=== PATIENT | male | born 1945 | race Caucasian/White ===

== ENCOUNTER 2020-07-11 22:52 | Inpatient (IN) | payer MEDICARE ==
[~2020-07-11 22:52] MED LIST: Iopamidol-370 76% 500 ML 1 ML ONE
[2020-07-11 23:57] LABS: #Lymphocytes 0.4 thou/uL (1.20-3.40); #Neutrophils 5.1 thou/uL (1.40-6.50); %Eosinophils 0.4 % (0.0-10.0); %Lymphocytes 6.7 % (21.0-51.0); %Monocytes 0.6 % (0.0-10.0); %Neutrophils 92.2 % (42.0-75.0); Hemoglobin 14.8 g/dL (14.0-18.0); Mean Corpuscular Hemoglobin 36.1 pg (27.0-31.0); Mean Platelet Volume 6.7 fL (7.4-10.4); Platelet Count 159 thou/uL (130-400); RBC Distribution Width 12.3 % (11.5-14.5); White Blood Cell (WBC) Count 5.5 thou/uL (4.8-10.8)
[2020-07-12 00:12] LABS: Bilirubin Negative (Negative); Blood, Urine Negative (Negative); Clarity Clear (Clear); Glucose, Urine (Dipstick) Normal (Negative); Ketone, Urine Negative (Negative); Leukocyte Negative Leu/uL (Negative); Nitrite Negative (Negative); Protein, Urine (Dipstick) Negative (Neg-Trace); Specific Gravity, Urine 1.021 (1.002-1.036); Urobilinogen 3 mg/dL (Less than 2)
[2020-07-12 00:17] LABS: AST (SGOT) 309 U/L (5-34); Albumin 3.9 g/dL (3.4-4.8); Alkaline Phosphatase 165 U/L (40-110); Anion Gap 16 mmol/L (10-20); BUN (Urea Nitrogen) 15 mg/dL (8.4-25.7); Bilirubin, Total 2.4 mg/dL (0.2-1.2); Calc. Creatinine Clearance 0 mL/min (70-130); Calcium 9.1 mg/dL (7.8-10.44); Carbon Dioxide 23 mmol/L (23-31); Chloride 100 mmol/L (98-107); Globulin 2.4 g/dL (2.4-3.5); Glucose 111 mg/dL (83-110); Potassium 4.1 mmol/L (3.5-5.1); Protein, Total 6.3 g/dL (5.8-8.1); Sodium 135 mmol/L (136-145)
[2020-07-12 00:18] LABS: ALT (SGPT) 226 U/L (8-55)
[2020-07-12 00:31] LABS: Lipase 3516 U/L (8-78)
[2020-07-12] MEDS ORDERED: Piperacillin/Tazobactam 3.375 GM VIAL ONE ×2 (01:12→02:03)
[2020-07-12] MEDS ORDERED: Acetaminophen 325 MG TAB PO PRN ×2 (03:13→04:36)
[2020-07-12] MEDS ORDERED: Ondansetron PF 4 MG/2 ML Vial IVP PRN (03:13)
[2020-07-12] MEDS ORDERED: hydrALAZINE 20 MG/ML VIAL SLOW IVP PRN (03:16)
[2020-07-12 04:44] LABS: SARS-CoV-2 NAA Rapid Test Not Detected (NotDetected)
[2020-07-12] MEDS ORDERED: HYDROcodone/Acetaminophen 10/325 mg Tablet PO SCH (04:45)
[2020-07-12] MEDS: Sodium Chloride 0.9% 1,000 ML IV SCH ×2 (04:52→12:37)
[2020-07-12 06:15] LABS: #Basophils 0.1 thou/uL (0.0-0.2); #Lymphocytes 0.2 thou/uL (1.20-3.40); #Monocytes 0.5 thou/uL (0.11-0.59); #Neutrophils 11.4 thou/uL (1.40-6.50); %Basophils 0.9 % (0.0-1.0); %Eosinophils 0.2 % (0.0-10.0); %Lymphocytes 1.9 % (21.0-51.0); Hemoglobin 14.4 g/dL (14.0-18.0); Mean Corpuscular HGB CONC 35.3 g/dL (32.0-36.0); Mean Corpuscular Hemoglobin 35.9 pg (27.0-31.0); Mean Platelet Volume 7.2 fL (7.4-10.4); Platelet Count 154 thou/uL (130-400); RBC Distribution Width 12.5 % (11.5-14.5); Red Blood Cell (RBC) Count 4.02 mill/uL (4.70-6.10); White Blood Cell (WBC) Count 12.3 thou/uL (4.8-10.8)
[2020-07-12 06:40] LABS: ALT (SGPT) 566 U/L (8-55); AST (SGOT) 611 U/L (5-34); Albumin 3.7 g/dL (3.4-4.8); Alkaline Phosphatase 168 U/L (40-110); Anion Gap 13 mmol/L (10-20); BUN (Urea Nitrogen) 18 mg/dL (8.4-25.7); Calc. Creatinine Clearance 56 mL/min (70-130); Calcium 8.9 mg/dL (7.8-10.44); Carbon Dioxide 25 mmol/L (23-31); Cardiac Risk 3.5 (Less than 4.5); Chloride 100 mmol/L (98-107); Cholesterol 129 mg/dl (< 200 Desired); Globulin 2.2 g/dL (2.4-3.5); Glucose 143 mg/dL (83-110); HDL Cholesterol 37 mg/dL (>60 Neg Risk); LDL Cholesterol, Calculated 72 mg/dL; Potassium 3.8 mmol/L (3.5-5.1); Protein, Total 5.9 g/dL (5.8-8.1); Sodium 134 mmol/L (136-145); Triglycerides 99 mg/dL (Less than 150)
[2020-07-12] MEDS: Piperacillin/Tazobactam 3.375 GM in Sodium Chloride 0.9% 100 ML IVPB SCH ×3 (07:47→21:19)
[2020-07-12] MEDS: Pantoprazole 40 MG VIAL IVP SCH (07:47)
[2020-07-12] MEDS: Lactated Ringer's 1,000 ML IV SCH ×2 (12:35→21:22)
[2020-07-12] MEDS ORDERED: Iothalamate Meglumine 60% 50 ML VIAL FS ONE (15:03)
[2020-07-12] MEDS ORDERED: Fentanyl 100 MCG/2 ML VIAL ONE (15:11)
[2020-07-12] MEDS ORDERED: Indomethacin 50 MG SUPP ONE (15:16)
[2020-07-12 15:33] LABS: CKMB 0.7 ng/mL (0-6.6)
[2020-07-12] MEDS ORDERED: Morphine 4 MG/ML VIAL SLOW IVP PRN (15:37)
[2020-07-12] MEDS ORDERED: HYDROcodone/Acetaminophen 5/325 mg Tablet PO PRN (15:38)
[2020-07-12] MEDS ORDERED: Lidocaine 1% PF 5 ML VIAL ONE (15:40)
[2020-07-12] MEDS ORDERED: PROPOFOL 200 MG/20 ML VIAL ONE (15:40)
[2020-07-12] MEDS ORDERED: Ondansetron PF 4 MG/2 ML Vial ONE (15:40)
[2020-07-12] MEDS ORDERED: PHENYLEPHRINE-NS 100 MCG/ML 10 ML SYRINGE ONE (15:40)
[2020-07-12] MEDS ORDERED: Dexamethasone 20 MG/5 ML VIAL ONE (15:40)
[2020-07-12] MEDS ORDERED: Rocuronium Bromide 10 MG/ML (10ML VIAL) ONE (15:40)
[2020-07-12] MEDS ORDERED: Esmolol 100 MG/10 ML VIAL ONE (15:40)
[2020-07-12] MEDS ORDERED: SUGAMMADEX SODIUM 200 MG/2 ML VIAL ONE (17:00)
[2020-07-12] MEDS: Carvedilol 6.25 MG TAB PO SCH (21:19)
[2020-07-13] MEDS: Piperacillin/Tazobactam 3.375 GM in Sodium Chloride 0.9% 100 ML IVPB SCH ×4 (01:51→20:44)
[2020-07-13] MEDS: Levothyroxine Sodium 25 MCG TAB PO SCH (05:43)
[2020-07-13 05:57] LABS: #Lymphocytes 1.2 thou/uL (1.20-3.40); #Monocytes 0.4 thou/uL (0.11-0.59); #Neutrophils 9.1 thou/uL (1.40-6.50); %Eosinophils 0.1 % (0.0-10.0); %Lymphocytes 11.1 % (21.0-51.0); %Monocytes 3.4 % (0.0-10.0); %Neutrophils 85.4 % (42.0-75.0); Hemoglobin 14.5 g/dL (14.0-18.0); Mean Corpuscular HGB CONC 34.9 g/dL (32.0-36.0); Mean Corpuscular Hemoglobin 35.4 pg (27.0-31.0); Mean Platelet Volume 7.4 fL (7.4-10.4); Platelet Count 127 thou/uL (130-400); RBC Distribution Width 12.4 % (11.5-14.5); Red Blood Cell (RBC) Count 4.09 mill/uL (4.70-6.10); White Blood Cell (WBC) Count 10.6 thou/uL (4.8-10.8)
[2020-07-13 06:20] LABS: ALT (SGPT) 451 U/L (8-55); AST (SGOT) 246 U/L (5-34); Albumin 3.6 g/dL (3.4-4.8); Alkaline Phosphatase 134 U/L (40-110); Anion Gap 13 mmol/L (10-20); BUN (Urea Nitrogen) 17 mg/dL (8.4-25.7); Bilirubin, Total 1.8 mg/dL (0.2-1.2); Calc. Creatinine Clearance 76 mL/min (70-130); Calcium 8.8 mg/dL (7.8-10.44); Carbon Dioxide 21 mmol/L (23-31); Cardiac Risk 3.1 (Less than 4.5); Chloride 108 mmol/L (98-107); Cholesterol 121 mg/dl (< 200 Desired); Globulin 2.6 g/dL (2.4-3.5); Glucose 158 mg/dL (83-110); HDL Cholesterol 39 mg/dL (>60 Neg Risk); LDL Cholesterol, Calculated 64 mg/dL; Lipase 458 U/L (8-78); Potassium 4.2 mmol/L (3.5-5.1); Protein, Total 6.2 g/dL (5.8-8.1); Sodium 138 mmol/L (136-145); Triglycerides 88 mg/dL (Less than 150)
[2020-07-13] MEDS: Pantoprazole 40 MG VIAL IVP SCH (08:30)
[2020-07-13] MEDS ORDERED: Spironolactone 25 MG TAB PO SCH (09:00)
[2020-07-13] MEDS: Carvedilol 6.25 MG TAB PO SCH ×2 (10:03→20:44)
[2020-07-13] MEDS: Aspirin 325 MG TAB PO SCH (10:03)
[2020-07-13] MEDS: Pantoprazole 40 MG GRANULES PACKET PO SCH (10:03)
[2020-07-13] MEDS: Lisinopril 5 MG TAB PO SCH (10:03)
[2020-07-13] MEDS: Lactated Ringer's 1,000 ML IV SCH ×2 (13:29→20:45)
[2020-07-14] MEDS: Piperacillin/Tazobactam 3.375 GM in Sodium Chloride 0.9% 100 ML IVPB SCH ×4 (01:53→20:18)
[2020-07-14] MEDS: Levothyroxine Sodium 25 MCG TAB PO SCH (05:28)
[2020-07-14 05:56] LABS: #Lymphocytes 1.1 thou/uL (1.20-3.40); #Monocytes 0.4 thou/uL (0.11-0.59); #Neutrophils 6.7 thou/uL (1.40-6.50); %Eosinophils 0.2 % (0.0-10.0); %Monocytes 5.4 % (0.0-10.0); %Neutrophils 81.4 % (42.0-75.0); Hemoglobin 12.5 g/dL (14.0-18.0); Mean Corpuscular HGB CONC 34.3 g/dL (32.0-36.0); Mean Corpuscular Hemoglobin 35.7 pg (27.0-31.0); Mean Platelet Volume 7.9 fL (7.4-10.4); Platelet Count 121 thou/uL (130-400); RBC Distribution Width 12.5 % (11.5-14.5); Red Blood Cell (RBC) Count 3.51 mill/uL (4.70-6.10); White Blood Cell (WBC) Count 8.2 thou/uL (4.8-10.8)
[2020-07-14 06:15] LABS: ALT (SGPT) 251 U/L (8-55); AST (SGOT) 85 U/L (5-34); Albumin 3.1 g/dL (3.4-4.8); Alkaline Phosphatase 101 U/L (40-110); Anion Gap 10 mmol/L (10-20); BUN (Urea Nitrogen) 17 mg/dL (8.4-25.7); Bilirubin, Total 0.7 mg/dL (0.2-1.2); Calc. Creatinine Clearance 83 mL/min (70-130); Calcium 8.8 mg/dL (7.8-10.44); Carbon Dioxide 27 mmol/L (23-31); Chloride 108 mmol/L (98-107); Globulin 2.5 g/dL (2.4-3.5); Glucose 121 mg/dL (83-110); Potassium 4.7 mmol/L (3.5-5.1); Protein, Total 5.6 g/dL (5.8-8.1); Sodium 140 mmol/L (136-145)
[2020-07-14] MEDS ORDERED: Communication Order-Pharmacy FS SCH (08:30)
[2020-07-14] MEDS: Lisinopril 5 MG TAB PO SCH (09:39)
[2020-07-14] MEDS: Carvedilol 6.25 MG TAB PO SCH ×2 (09:39→20:20)
[2020-07-14] MEDS: Aspirin 325 MG TAB PO SCH (09:39)
[2020-07-14] MEDS: Pantoprazole 40 MG GRANULES PACKET PO SCH (10:46)
[2020-07-14] MEDS: Lactated Ringer's 1,000 ML IV SCH ×2 (13:12→15:48)
[2020-07-15] MEDS: Piperacillin/Tazobactam 3.375 GM in Sodium Chloride 0.9% 100 ML IVPB SCH ×4 (02:05→20:04)
[2020-07-15] MEDS: Lactated Ringer's 1,000 ML IV SCH ×2 (03:23→20:03)
[2020-07-15] MEDS: Levothyroxine Sodium 25 MCG TAB PO SCH (05:04)
[2020-07-15 06:17] LABS: #Basophils 0.1 thou/uL (0.0-0.2); #Lymphocytes 0.8 thou/uL (1.20-3.40); #Monocytes 0.5 thou/uL (0.11-0.59); %Basophils 1.2 % (0.0-1.0); %Eosinophils 0.8 % (0.0-10.0); %Lymphocytes 15.3 % (21.0-51.0); %Monocytes 8.5 % (0.0-10.0); %Neutrophils 74.3 % (42.0-75.0); Hemoglobin 12.1 g/dL (14.0-18.0); Mean Corpuscular HGB CONC 34.2 g/dL (32.0-36.0); Mean Corpuscular Hemoglobin 35.1 pg (27.0-31.0); Mean Platelet Volume 7.4 fL (7.4-10.4); Platelet Count 129 thou/uL (130-400); RBC Distribution Width 12.6 % (11.5-14.5); Red Blood Cell (RBC) Count 3.43 mill/uL (4.70-6.10); White Blood Cell (WBC) Count 5.4 thou/uL (4.8-10.8)
[2020-07-15 06:22] LABS: PTT 31.1 sec (22.9-36.1); Prothrombin Time 13.6 sec (12.0-14.7)
[2020-07-15 06:40] LABS: ALT (SGPT) 170 U/L (8-55); AST (SGOT) 39 U/L (5-34); Albumin 3.1 g/dL (3.4-4.8); Alkaline Phosphatase 92 U/L (40-110); Anion Gap 10 mmol/L (10-20); BUN (Urea Nitrogen) 11 mg/dL (8.4-25.7); Bilirubin, Total 0.7 mg/dL (0.2-1.2); Calc. Creatinine Clearance 83 mL/min (70-130); Calcium 8.6 mg/dL (7.8-10.44); Carbon Dioxide 25 mmol/L (23-31); Chloride 107 mmol/L (98-107); Globulin 2.4 g/dL (2.4-3.5); Glucose 85 mg/dL (83-110); Lipase 82 U/L (8-78); Potassium 3.8 mmol/L (3.5-5.1); Protein, Total 5.5 g/dL (5.8-8.1); Sodium 138 mmol/L (136-145)
[2020-07-15] MEDS: Aspirin 325 MG TAB PO SCH (08:07)
[2020-07-15] MEDS: Carvedilol 6.25 MG TAB PO SCH ×2 (08:08→20:05)
[2020-07-15] MEDS: Lisinopril 5 MG TAB PO SCH (08:08)
[2020-07-15] MEDS ORDERED: Piperacillin/Tazobactam 3.375 GM VIAL ONE (08:45)
[2020-07-16] MEDS: Piperacillin/Tazobactam 3.375 GM in Sodium Chloride 0.9% 100 ML IVPB SCH ×4 (02:13→20:44)
[2020-07-16] MEDS: Levothyroxine Sodium 25 MCG TAB PO SCH (05:51)
[2020-07-16] MEDS: Carvedilol 6.25 MG TAB PO SCH ×2 (08:03→20:44)
[2020-07-16] MEDS: Lisinopril 5 MG TAB PO SCH (08:04)
[2020-07-16] MEDS: Aspirin 325 MG TAB PO SCH (08:06)
[2020-07-16] MEDS: Lactated Ringer's 1,000 ML IV SCH ×2 (11:11→21:55)
[2020-07-17] MEDS: Piperacillin/Tazobactam 3.375 GM in Sodium Chloride 0.9% 100 ML IVPB SCH ×4 (02:20→20:38)
[2020-07-17] MEDS ORDERED: Sodium Chloride 0.9% 1,000 ML IV SCH ×2 (06:00→08:05)
[2020-07-17 06:18] LABS: #Eosinphils 0.1 thou/uL (0.0-0.7); #Lymphocytes 1.9 thou/uL (1.20-3.40); #Monocytes 0.6 thou/uL (0.11-0.59); #Neutrophils 4.9 thou/uL (1.40-6.50); %Basophils 0.2 % (0.0-1.0); %Eosinophils 1.8 % (0.0-10.0); %Lymphocytes 25.1 % (21.0-51.0); %Monocytes 8.1 % (0.0-10.0); %Neutrophils 64.8 % (42.0-75.0); Hemoglobin 12.1 g/dL (14.0-18.0); Mean Corpuscular HGB CONC 33.5 g/dL (32.0-36.0); Mean Corpuscular Hemoglobin 34.4 pg (27.0-31.0); Mean Platelet Volume 7.2 fL (7.4-10.4); Platelet Count 149 thou/uL (130-400); RBC Distribution Width 12.4 % (11.5-14.5); Red Blood Cell (RBC) Count 3.53 mill/uL (4.70-6.10); White Blood Cell (WBC) Count 7.5 thou/uL (4.8-10.8)
[2020-07-17] MEDS: Carvedilol 6.25 MG TAB PO SCH ×2 (06:27→20:42)
[2020-07-17] MEDS: Levothyroxine Sodium 25 MCG TAB PO SCH (06:28)
[2020-07-17] MEDS ORDERED: Heparin 10,000 UNITS/ 10 ML VIAL ONE (06:45)
[2020-07-17] MEDS ORDERED: Lidocaine 1% (PF) 30 ML VIAL ONE (06:45)
[2020-07-17 06:51] LABS: ALT (SGPT) 95 U/L (8-55); AST (SGOT) 25 U/L (5-34); Albumin 3.1 g/dL (3.4-4.8); Alkaline Phosphatase 74 U/L (40-110); Anion Gap 10 mmol/L (10-20); BUN (Urea Nitrogen) 11 mg/dL (8.4-25.7); Bilirubin, Total 0.7 mg/dL (0.2-1.2); Calc. Creatinine Clearance 76 mL/min (70-130); Calcium 8.7 mg/dL (7.8-10.44); Carbon Dioxide 26 mmol/L (23-31); Chloride 108 mmol/L (98-107); Globulin 2.4 g/dL (2.4-3.5); Glucose 94 mg/dL (83-110); Potassium 4.1 mmol/L (3.5-5.1); Protein, Total 5.5 g/dL (5.8-8.1); Sodium 140 mmol/L (136-145)
[2020-07-17] MEDS ORDERED: Fentanyl 100 MCG/2 ML VIAL ONE (07:18)
[2020-07-17] MEDS ORDERED: Midazolam HCl 2 mg/2 ml Vial ONE (07:18)
[2020-07-17] MEDS ORDERED: Protamine Sulfate 50 MG/5 ML VIAL ONE (07:44)
[2020-07-17] MEDS ORDERED: Sodium Chloride 0.9% 200 ML IV PRN (08:04)
[2020-07-17] MEDS ORDERED: Nitroglycerin 0.4 MG TAB (25 Tab Bottle) SL PRN (08:04)
[2020-07-17] MEDS ORDERED: Acetaminophen/Codeine 30-300mg Tablet PO PRN ×2 (08:04)
[2020-07-17] MEDS ORDERED: Furosemide 20 MG TAB PO SCH (08:15)
[2020-07-17] MEDS ORDERED: Furosemide 40 MG TAB PO SCH (08:15)
[2020-07-17] MEDS ORDERED: Iopamidol 370 76% 100 ML VIAL ONE (08:42)
[2020-07-17] MEDS ORDERED: Iopamidol 370 76% 50 ML VIAL FS ONE (08:42)
[2020-07-17] MEDS: Lisinopril 5 MG TAB PO SCH (13:43)
[2020-07-17] MEDS: Aspirin 325 MG TAB PO SCH (13:43)
[2020-07-17] MEDS: Lactated Ringer's 1,000 ML IV SCH (13:44)
[2020-07-18] MEDS: Piperacillin/Tazobactam 3.375 GM in Sodium Chloride 0.9% 100 ML IVPB SCH ×4 (04:47→20:46)
[2020-07-18 04:51] LABS: ALT (SGPT) 81 U/L (8-55); AST (SGOT) 23 U/L (5-34); Albumin 3.3 g/dL (3.4-4.8); Alkaline Phosphatase 80 U/L (40-110); Anion Gap 10 mmol/L (10-20); BUN (Urea Nitrogen) 12 mg/dL (8.4-25.7); Bilirubin, Total 0.5 mg/dL (0.2-1.2); Calc. Creatinine Clearance 89 mL/min (70-130); Calcium 8.8 mg/dL (7.8-10.44); Carbon Dioxide 26 mmol/L (23-31); Chloride 106 mmol/L (98-107); Globulin 2.7 g/dL (2.4-3.5); Glucose 132 mg/dL (83-110); Lipase 71 U/L (8-78); Potassium 3.8 mmol/L (3.5-5.1); Sodium 138 mmol/L (136-145)
[2020-07-18] MEDS: Levothyroxine Sodium 25 MCG TAB PO SCH (05:20)
[2020-07-18] MEDS: Furosemide 40 MG TAB PO SCH (09:18)
[2020-07-18] MEDS: Aspirin 325 MG TAB PO SCH (09:18)
[2020-07-18] MEDS: Carvedilol 6.25 MG TAB PO SCH ×2 (09:18→20:47)
[2020-07-18] MEDS: Lisinopril 5 MG TAB PO SCH (09:18)
[2020-07-18] MEDS ORDERED: Communication Order-Pharmacy FS ONE (18:13)
[2020-07-18] MEDS: Docusate 100 MG CAP PO SCH (20:48)
[2020-07-19] MEDS: Piperacillin/Tazobactam 3.375 GM in Sodium Chloride 0.9% 100 ML IVPB SCH ×4 (01:53→20:21)
[2020-07-19] MEDS: Levothyroxine Sodium 25 MCG TAB PO SCH (05:45)
[2020-07-19] MEDS: Lisinopril 5 MG TAB PO SCH (09:40)
[2020-07-19] MEDS: Docusate 100 MG CAP PO SCH ×2 (09:40→20:21)
[2020-07-19] MEDS: Aspirin 325 MG TAB PO SCH (09:40)
[2020-07-19] MEDS: Furosemide 40 MG TAB PO SCH (09:40)
[2020-07-19] MEDS: Carvedilol 6.25 MG TAB PO SCH ×2 (09:40→20:21)
[2020-07-19] MEDS ORDERED: Piperacillin/Tazobactam 3.375 GM VIAL ONE (14:34)
[2020-07-20] MEDS: Piperacillin/Tazobactam 3.375 GM in Sodium Chloride 0.9% 100 ML IVPB SCH ×2 (02:58→13:23)
[2020-07-20] MEDS: Carvedilol 6.25 MG TAB PO SCH (05:19)
[2020-07-20] MEDS: Furosemide 40 MG TAB PO SCH (05:22)
[2020-07-20] MEDS: Levothyroxine Sodium 25 MCG TAB PO SCH (05:22)
[2020-07-20] MEDS: Lisinopril 5 MG TAB PO SCH (05:22)
[2020-07-20] MEDS ORDERED: CABG-Vancomycin 1 GM in Premix Bag 1 BAG IVPB SCH (06:30)
[2020-07-20] MEDS ORDERED: Albumin 5% 500 ML ONE (06:37)
[2020-07-20] MEDS ORDERED: Vancomycin 1 GM/200 ML BAG ONE (06:39)
[2020-07-20] MEDS ORDERED: Midazolam HCl 5 mg/5 ml Vial ONE (06:50)
[2020-07-20] MEDS ORDERED: Fentanyl 250 MCG/5 ML VIAL ONE (06:50)
[2020-07-20] MEDS ORDERED: Dexmedetomidine 200 MCG/2 ML VIAL ONE (06:51)
[2020-07-20] MEDS ORDERED: Midazolam HCl 2 mg/2 ml Vial ONE (07:13)
[2020-07-20] MEDS ORDERED: Calcium Chloride 1 GM/10 ML Abboject SYRINGE ONE (08:00)
[2020-07-20] MEDS ORDERED: Sodium Bicarb 50 MEQ/50 ML Abboject 8.4% SYRINGE ONE (08:00)
[2020-07-20] MEDS ORDERED: Cardioplegic Soln 1,000 ML BAG ONE (08:00)
[2020-07-20] MEDS ORDERED: Lidocaine 2% PF 100 mg/5 ml Syringe ONE (08:00)
[2020-07-20] MEDS ORDERED: Glycopyrrolate 0.2 MG/ML 5 ML SYRINGE ONE (08:00)
[2020-07-20] MEDS ORDERED: Norepinephrine 4 MG/4 ML VIAL ONE (08:00)
[2020-07-20] MEDS ORDERED: PROPOFOL 200 MG/20 ML VIAL ONE (08:00)
[2020-07-20] MEDS ORDERED: Heparin 30,000 units/30 ml VIAL ONE (08:00)
[2020-07-20] MEDS ORDERED: Mannitol 12.5 GM/50 ML ONE (08:00)
[2020-07-20] MEDS ORDERED: Lidocaine 1% PF 5 ML VIAL ONE (08:00)
[2020-07-20] MEDS ORDERED: Magnesium Sulfate 1 GM/2 ML VIAL ONE (08:00)
[2020-07-20] MEDS ORDERED: Protamine Sulfate 250 MG/25 ML VIAL ONE (08:00)
[2020-07-20] MEDS ORDERED: Thrombin 5000 UNITS/5 ML VIAL ONE (08:00)
[2020-07-20] MEDS ORDERED: Papaverine 60 MG/2 ML VIAL ONE (08:00)
[2020-07-20] MEDS ORDERED: Potassium Chloride 60 MEQ/30 ML VIAL ONE (08:00)
[2020-07-20] MEDS ORDERED: Heparin 5,000 UNITS/ML VIAL ONE (08:00)
[2020-07-20] MEDS ORDERED: Nitroglycerin 50 MG/250 ML BOT ONE (08:00)
[2020-07-20] MEDS ORDERED: Vecuronium 10 MG VIAL ONE (08:00)
[2020-07-20] MEDS ORDERED: Aminocaproic Acid 5 GM/20 ML VIAL ONE (08:00)
[2020-07-20] MEDS ORDERED: Potassium Chloride 20 MEQ/100 ML PREMIX BAG IVPB PRN (08:57)
[2020-07-20] MEDS ORDERED: Bisacodyl 10 MG SUPP PR PRN (08:57)
[2020-07-20] MEDS ORDERED: niCARdipine 25 MG in Sodium Chloride 0.9% 250 ML 250 ML IVPB PRN (08:57)
[2020-07-20] MEDS ORDERED: Bisacodyl 5 MG TAB PO PRN (08:57)
[2020-07-20] MEDS ORDERED: Acetaminophen 325 MG TAB PO PRN (08:57)
[2020-07-20] MEDS ORDERED: Fentanyl 100 MCG/2 ML VIAL SLOW IVP PRN ×2 (08:57)
[2020-07-20] MEDS ORDERED: Guaifenesin DM 100-10/5 ML UDCUP PO PRN (08:57)
[2020-07-20] MEDS ORDERED: Nitroglycerin 50 MG/250 ML BOT 250 ML IVPB PRN (08:57)
[2020-07-20] MEDS ORDERED: Norepinephrine 8 MG/0.9% NS 250 ML IVPB PRN (08:57)
[2020-07-20] MEDS ORDERED: hydrALAZINE 20 MG/ML VIAL SLOW IVP PRN (08:57)
[2020-07-20] MEDS ORDERED: Mag-Al 1200 mg/1200 mg/30 ML UDCUP PO PRN (08:57)
[2020-07-20] MEDS ORDERED: Morphine 2 MG/ML VIAL SLOW IVP PRN (08:57)
[2020-07-20] MEDS ORDERED: Post-Op Insulin Drip Protocol IVPB ONE (08:57)
[2020-07-20] MEDS ORDERED: Hetastarch 6% 500 ML 500 ML IVPB PRN (08:57)
[2020-07-20] MEDS ORDERED: Ondansetron PF 4 MG/2 ML Vial IVP PRN (08:57)
[2020-07-20] MEDS ORDERED: HYDROcodone/Acetaminophen 5/325 mg Tablet PO PRN (08:57)
[2020-07-20] MEDS ORDERED: Promethazine HCl 25 MG/ML VIAL IM PRN (08:57)
[2020-07-20] MEDS ORDERED: Aspirin 325 MG TAB PO SCH (09:00)
[2020-07-20] MEDS ORDERED: HUMULIN R 100 UNITS in Sodium Chloride 0.9% 100 ML IVPB SCH (10:00)
[2020-07-20] MEDS ORDERED: Dextrose 5% in Water 1,000 ML IV PRN (10:00)
[2020-07-20] MEDS ORDERED: Lantus 1000 UNITS/10 ML VIAL SC PRN (10:00)
[2020-07-20] MEDS ORDERED: Dextrose 50% Abboject 50 ML SYRINGE SLOW IVP PRN (10:00)
[2020-07-20] MEDS ORDERED: PHENYLEPHRINE-NS 100 MCG/ML 10 ML SYRINGE ONE (10:15)
[2020-07-20 13:01] LABS: Actual Bicarbonate (HCO3a) 22.2 mEq/L (22-28); Base Excess (BEa) -1.8 mEq/L (-2.0 to +3.0); CO2 Tension 35.3 mmHg (35.0-45.0); Calcium, Ionized (arterial) 1.08 mmol/L (1.12-1.30); Carboxyhemoglobin (COHb) 0.3 gm% (0.0-3.0); Hemoglobin (Hb) 12.4 g/dL (14.0-18.0); O2 Tension (PaO2), arterial 206.5 mmHg (> 70.0); Potassium - ABG Lab 4.71 mmol/L (3.70-5.30); pH, Arterial 7.42 (7.35-7.45)
[2020-07-20 13:03] LABS: Puncture Site Arterial Line
[2020-07-20 13:04] LABS: #Eosinphils 0.1 thou/uL (0.0-0.7); #Lymphocytes 1.6 thou/uL (1.20-3.40); #Monocytes 0.8 thou/uL (0.11-0.59); #Neutrophils 13.8 thou/uL (1.40-6.50); %Basophils 0.2 % (0.0-1.0); %Eosinophils 0.6 % (0.0-10.0); %Lymphocytes 9.5 % (21.0-51.0); %Monocytes 5.1 % (0.0-10.0); %Neutrophils 84.6 % (42.0-75.0); Hemoglobin 12.2 g/dL (14.0-18.0); Mean Corpuscular HGB CONC 34.1 g/dL (32.0-36.0); Mean Corpuscular Hemoglobin 34.4 pg (27.0-31.0); Mean Platelet Volume 7.1 fL (7.4-10.4); Platelet Count 158 thou/uL (130-400); RBC Distribution Width 12.3 % (11.5-14.5); Red Blood Cell (RBC) Count 3.55 mill/uL (4.70-6.10); White Blood Cell (WBC) Count 16.3 thou/uL (4.8-10.8)
[2020-07-20 13:04] LABS: ALV-art Gradient 177.175 mmHg (0-20)
[2020-07-20] MEDS: Insulin Regular 300 UNITS/3 ML VIAL SC PRN ×2 (13:12→16:07)
[2020-07-20 13:14] LABS: INR-International Normal Ratio 1.2; PTT 28.8 sec (22.9-36.1); Prothrombin Time 15.3 sec (12.0-14.7)
[2020-07-20 13:22] LABS: Anion Gap 10 mmol/L (10-20); BUN (Urea Nitrogen) 11 mg/dL (8.4-25.7); Calc. Creatinine Clearance 107 mL/min (70-130); Calcium 7.8 mg/dL (7.8-10.44); Carbon Dioxide 22 mmol/L (23-31); Chloride 111 mmol/L (98-107); Glucose 157 mg/dL (83-110); Potassium 4.9 mmol/L (3.5-5.1); Sodium 138 mmol/L (136-145)
[2020-07-20] MEDS: Famotidine/PF 20 mg/2ml Vial SLOW IVP SCH ×2 (13:24→20:24)
[2020-07-20] MEDS: Ketorolac Tromethamine 30 MG/ML VIAL IVP SCH ×2 (13:33→17:34)
[2020-07-20] MEDS: Sodium Chloride 0.9% 1,000 ML IV SCH (13:41)
[2020-07-20 13:44] LABS: Potassium 4.9 mmol/L (3.5-5.1)
[2020-07-20] MEDS: HYDROcodone/Acetaminophen 5/325 mg Tablet PO PRN (20:24)
[2020-07-21] MEDS: Ketorolac Tromethamine 30 MG/ML VIAL IVP SCH ×2 (00:12→06:32)
[2020-07-21] MEDS: Insulin Regular 300 UNITS/3 ML VIAL SC PRN (00:16)
[2020-07-21] MEDS: HYDROcodone/Acetaminophen 5/325 mg Tablet PO PRN ×3 (00:22→21:40)
[2020-07-21] MEDS: Sodium Chloride 0.9% 1,000 ML IV SCH (02:30)
[2020-07-21 04:49] LABS: Anion Gap 10 mmol/L (10-20); BUN (Urea Nitrogen) 15 mg/dL (8.4-25.7); Calc. Creatinine Clearance 105 mL/min (70-130); Calcium 7.8 mg/dL (7.8-10.44); Carbon Dioxide 23 mmol/L (23-31); Chloride 111 mmol/L (98-107); Glucose 114 mg/dL (83-110); Potassium 4.3 mmol/L (3.5-5.1); Sodium 140 mmol/L (136-145)
[2020-07-21 04:53] LABS: #Lymphocytes 0.8 thou/uL (1.20-3.40); #Monocytes 0.5 thou/uL (0.11-0.59); #Neutrophils 6.7 thou/uL (1.40-6.50); %Lymphocytes 10.2 % (21.0-51.0); %Monocytes 5.9 % (0.0-10.0); %Neutrophils 83.8 % (42.0-75.0); Hemoglobin 9.2 g/dL (14.0-18.0); Mean Corpuscular HGB CONC 33.4 g/dL (32.0-36.0); Mean Corpuscular Hemoglobin 34.1 pg (27.0-31.0); Mean Platelet Volume 7.6 fL (7.4-10.4); Platelet Count 113 thou/uL (130-400); RBC Distribution Width 12.4 % (11.5-14.5); Red Blood Cell (RBC) Count 2.71 mill/uL (4.70-6.10)
[2020-07-21] MEDS ORDERED: Guaifenesin DM 100-10/5 ML UDCUP PO PRN (08:26)
[2020-07-21] MEDS ORDERED: Mineral Oil ENEMA PR PRN (08:26)
[2020-07-21] MEDS ORDERED: Bisacodyl 10 MG SUPP PR PRN (08:26)
[2020-07-21] MEDS ORDERED: Zolpidem Tartrate 5 MG TAB PO PRN (08:26)
[2020-07-21] MEDS ORDERED: Furosemide 40 MG/4 ML VIAL SLOW IVP SCH ×3 (08:26→14:00)
[2020-07-21] MEDS ORDERED: Mag-Al 1200 mg/1200 mg/30 ML UDCUP PO PRN (08:26)
[2020-07-21] MEDS ORDERED: Bisacodyl 5 MG TAB PO PRN (08:26)
[2020-07-21] MEDS ORDERED: Nitroglycerin 0.4 MG TAB (25 Tab Bottle) SL PRN (08:26)
[2020-07-21] MEDS ORDERED: diphenhydrAMINE 25 MG CAP PO PRN (08:26)
[2020-07-21] MEDS ORDERED: Famotidine 20 MG TAB PO SCH ×2 (09:00)
[2020-07-21] MEDS: Carvedilol 6.25 MG TAB PO SCH ×2 (09:09→21:46)
[2020-07-21] MEDS: Aspirin 325 mg Enteric Coated Tablet PO SCH (09:09)
[2020-07-21 10:52] LABS: Actual Bicarbonate (HCO3a) 22.3 mEq/L (22-28); Analyzer IN Cardio OR; Base Excess (BEa) -0.9 mEq/L (-2.0 to +3.0); CO2 Tension 32.4 mmHg (35.0-45.0); Calcium, Ionized (arterial) 1.11 mmol/L (1.12-1.30); Hemoglobin (Hb) 13.2 g/dL (14.0-18.0); O2 Tension (PaO2), arterial 336.3 mmHg (> 70.0); Potassium - ABG Lab 4.13 mmol/L (3.70-5.30); pH, Arterial 7.46 (7.35-7.45)
[2020-07-21 10:53] LABS: Actual Bicarbonate (HCO3a) 19.1 mEq/L (22-28); Analyzer IN Cardio OR; Calcium, Ionized (arterial) 0.96 mmol/L (1.12-1.30); Hemoglobin (Hb) 9.8 g/dL (14.0-18.0); O2 Tension (PaO2), arterial 391.3 mmHg (> 70.0); Potassium - ABG Lab 5.71 mmol/L (3.70-5.30)
[2020-07-21 10:53] LABS: Actual Bicarbonate (HCO3a) 21.1 mEq/L (22-28); Analyzer IN Cardio OR; CO2 Tension 34.7 mmHg (35.0-45.0); Calcium, Ionized (arterial) 1.07 mmol/L (1.12-1.30); Carboxyhemoglobin (COHb) 0.1 gm% (0.0-3.0); Hemoglobin (Hb) 12.3 g/dL (14.0-18.0); O2 Tension (PaO2), arterial 422.4 mmHg (> 70.0); Potassium - ABG Lab 4.23 mmol/L (3.70-5.30)
[2020-07-21 10:53] LABS: Actual Bicarbonate (HCO3v) 25 mEq/L (22-28); Analyzer IN Cardio OR; Base Excess 0.3 mEq/L (-2.0 to +3.0); Calcium, Ionized (venous) 0.99 mmol/L (1.16-1.32); Chloride (VBG) 107 mmol/L (98-106); Hemoglobin (Hb) 9.4 g/dL (12.6-17.4); pH (venous) 7.39 (7.32-7.43)
[2020-07-21 10:54] LABS: Analyzer IN Cardio OR; Base Excess (BEa) -3.5 mEq/L (-2.0 to +3.0); CO2 Tension 35.5 mmHg (35.0-45.0); Calcium, Ionized (arterial) 1.03 mmol/L (1.12-1.30); Carboxyhemoglobin (COHb) 0.3 gm% (0.0-3.0); Hemoglobin (Hb) 9.8 g/dL (14.0-18.0); O2 Tension (PaO2), arterial 422.8 mmHg (> 70.0); Potassium - ABG Lab 5.66 mmol/L (3.70-5.30); pH, Arterial 7.39 (7.35-7.45)
[2020-07-21 10:55] LABS: Actual Bicarbonate (HCO3a) 24.4 mEq/L (22-28); Analyzer IN Cardio OR; Base Excess (BEa) -0.7 mEq/L (-2.0 to +3.0); CO2 Tension 42.1 mmHg (35.0-45.0); Carboxyhemoglobin (COHb) 0.5 gm% (0.0-3.0); Hemoglobin (Hb) 8.8 g/dL (14.0-18.0); O2 Tension (PaO2), arterial 253.3 mmHg (> 70.0); Potassium - ABG Lab 4.84 mmol/L (3.70-5.30); pH, Arterial 7.38 (7.35-7.45)
[2020-07-21 10:55] LABS: Analyzer IN Cardio OR; Base Excess (BEa) -1.7 mEq/L (-2.0 to +3.0); CO2 Tension 39.2 mmHg (35.0-45.0); Calcium, Ionized (arterial) 1.04 mmol/L (1.12-1.30); Carboxyhemoglobin (COHb) 0.3 gm% (0.0-3.0); Hemoglobin (Hb) 11.8 g/dL (14.0-18.0); O2 Tension (PaO2), arterial 407.5 mmHg (> 70.0); Potassium - ABG Lab 4.29 mmol/L (3.70-5.30); pH, Arterial 7.39 (7.35-7.45)
[2020-07-21 11:02] LABS: Puncture Site Arterial Line
[2020-07-21 11:03] LABS: Puncture Site Arterial Line
[2020-07-21 11:04] LABS: Puncture Site Arterial Line; pH, Arterial 7.56 (7.35-7.45)
[2020-07-21 11:05] LABS: Puncture Site Arterial Line
[2020-07-21 11:05] LABS: Puncture Site Arterial Line
[2020-07-21 11:13] LABS: Puncture Site Arterial Line
[2020-07-21] MEDS ORDERED: Ondansetron PF 4 MG/2 ML Vial IVP PRN (12:28)
[2020-07-22 04:31] LABS: #Lymphocytes 1.3 thou/uL (1.20-3.40); #Monocytes 0.9 thou/uL (0.11-0.59); %Basophils 0.2 % (0.0-1.0); %Eosinophils 0.4 % (0.0-10.0); %Lymphocytes 14.4 % (21.0-51.0); %Monocytes 9.5 % (0.0-10.0); %Neutrophils 75.4 % (42.0-75.0); Hemoglobin 9.8 g/dL (14.0-18.0); Mean Corpuscular HGB CONC 34.5 g/dL (32.0-36.0); Mean Corpuscular Hemoglobin 35.3 pg (27.0-31.0); Mean Platelet Volume 7.5 fL (7.4-10.4); Platelet Count 135 thou/uL (130-400); RBC Distribution Width 12.5 % (11.5-14.5); Red Blood Cell (RBC) Count 2.77 mill/uL (4.70-6.10); White Blood Cell (WBC) Count 9.3 thou/uL (4.8-10.8)
[2020-07-22 04:47] LABS: Anion Gap 13 mmol/L (10-20); BUN (Urea Nitrogen) 16 mg/dL (8.4-25.7); Calc. Creatinine Clearance 107 mL/min (70-130); Carbon Dioxide 21 mmol/L (23-31); Chloride 107 mmol/L (98-107); Glucose 106 mg/dL (83-110); Potassium 3.9 mmol/L (3.5-5.1); Sodium 137 mmol/L (136-145)
[2020-07-22 04:48] LABS: Calcium 8.1 mg/dL (7.8-10.44)
[2020-07-22 05:10] VITALS: BMI 31.4
[2020-07-22] MEDS: Aspirin 325 mg Enteric Coated Tablet PO SCH (08:37)
[2020-07-22] MEDS: HYDROcodone/Acetaminophen 5/325 mg Tablet PO PRN ×3 (08:38→21:12)
[2020-07-22] MEDS: Carvedilol 6.25 MG TAB PO SCH ×2 (09:41→21:12)
[2020-07-22] MEDS ORDERED: Furosemide 20 MG/2 ML VIAL SLOW IVP SCH (12:00)
[2020-07-22] MEDS ORDERED: Polyethylene Glycol 3350 17 GM Packet PO PRN (15:01)
[2020-07-22] MEDS: Senokot S 8.6-50 MG TAB PO SCH (21:12)
[2020-07-22] MEDS: Atorvastatin Calcium 20 MG TAB PO SCH (21:13)
[2020-07-23 05:07] LABS: #Eosinphils 0.1 thou/uL (0.0-0.7); #Lymphocytes 1.6 thou/uL (1.20-3.40); #Monocytes 0.8 thou/uL (0.11-0.59); #Neutrophils 6.2 thou/uL (1.40-6.50); %Basophils 0.3 % (0.0-1.0); %Eosinophils 0.7 % (0.0-10.0); %Lymphocytes 18.3 % (21.0-51.0); %Monocytes 9.2 % (0.0-10.0); %Neutrophils 71.5 % (42.0-75.0); Hemoglobin 9.7 g/dL (14.0-18.0); Mean Corpuscular HGB CONC 33.2 g/dL (32.0-36.0); Mean Platelet Volume 7.2 fL (7.4-10.4); Platelet Count 167 thou/uL (130-400); RBC Distribution Width 12.5 % (11.5-14.5); Red Blood Cell (RBC) Count 2.85 mill/uL (4.70-6.10); White Blood Cell (WBC) Count 8.6 thou/uL (4.8-10.8)
[2020-07-23 05:33] LABS: Anion Gap 11 mmol/L (10-20); BUN (Urea Nitrogen) 13 mg/dL (8.4-25.7); Calc. Creatinine Clearance 106 mL/min (70-130); Calcium 8.7 mg/dL (7.8-10.44); Carbon Dioxide 27 mmol/L (23-31); Chloride 105 mmol/L (98-107); Glucose 109 mg/dL (83-110); Magnesium 1.9 mg/dL (1.6-2.6); Sodium 139 mmol/L (136-145)
[2020-07-23] MEDS: Carvedilol 6.25 MG TAB PO SCH ×2 (08:58→21:04)
[2020-07-23] MEDS: Senokot S 8.6-50 MG TAB PO SCH ×2 (08:58→21:04)
[2020-07-23] MEDS: Furosemide 20 MG TAB PO SCH (08:58)
[2020-07-23] MEDS: Aspirin 325 mg Enteric Coated Tablet PO SCH (08:58)
[2020-07-23] MEDS: HYDROcodone/Acetaminophen 5/325 mg Tablet PO PRN (14:14)
[2020-07-23] MEDS ORDERED: Lisinopril 5 MG TAB PO SCH (21:00)
[2020-07-23] MEDS: Atorvastatin Calcium 20 MG TAB PO SCH (21:04)
[2020-07-24] MEDS: Aspirin 325 mg Enteric Coated Tablet PO SCH (09:08)
[2020-07-24] MEDS: Furosemide 20 MG TAB PO SCH (09:08)
[2020-07-24] MEDS: Senokot S 8.6-50 MG TAB PO SCH (09:08)
[2020-07-24] MEDS: Carvedilol 6.25 MG TAB PO SCH (09:08)
[2020-07-24] MEDS ORDERED: Polyethylene Glycol 3350 17 GM Packet PO PRN (09:33)
[2020-07-24 11:50] VITALS: BP 115/56; TEMP 97.6
== END 2020-07-24 13:55 | disposition home or self-care (01) | DRG 981 ==
LOC: ERS 22:52 → T4-B 07-12 01:56 → SURG A 07-17 08:46 → 2NO 07-17 12:45 → CCU 07-20 06:05 → 2NO 07-21 14:36
PROVIDERS: ADMIT Internal Medicine; ATTEND Internal Medicine
PROC: 0F798ZZ Dilation of Common Bile Duct, Via Natural or Artificial Opening Endoscopic (ICD-10-PCS; 2020-07-12)
PROC: 0DJ08ZZ Inspection of Upper Intestinal Tract, Via Natural or Artificial Opening Endoscopic (ICD-10-PCS; 2020-07-12)
PROC: BF101ZZ Fluoroscopy of Bile Ducts using Low Osmolar Contrast (ICD-10-PCS; 2020-07-12)
PROC: 4A023N7 Measurement of Cardiac Sampling and Pressure, Left Heart, Percutaneous Approach (ICD-10-PCS; 2020-07-17)
PROC: B2151ZZ Fluoroscopy of Left Heart using Low Osmolar Contrast (ICD-10-PCS; 2020-07-17)
PROC: B2111ZZ Fluoroscopy of Multiple Coronary Arteries using Low Osmolar Contrast (ICD-10-PCS; 2020-07-17)
PROC: 02100Z9 Bypass Coronary Artery, One Artery from Left Internal Mammary, Open Approach (ICD-10-PCS; principal; 2020-07-20)
PROC: 5A1221Z Performance of Cardiac Output, Continuous (ICD-10-PCS; 2020-07-20)
DX: K85.10 Biliary acute pancreatitis without necrosis or infection (principal); K83.1 Obstruction of bile duct; J96.00 Acute respiratory failure, unspecified whether with hypoxia or hypercapnia; K80.42 Calculus of bile duct with acute cholecystitis without obstruction; I25.810 Atherosclerosis of coronary artery bypass graft(s) without angina pectoris; I47.2 Ventricular tachycardia; I47.1 Supraventricular tachycardia; N17.9 Acute kidney failure, unspecified; Z20.822 Contact with and (suspected) exposure to COVID-19; E03.9 Hypothyroidism, unspecified; E78.5 Hyperlipidemia, unspecified; E78.00 Pure hypercholesterolemia, unspecified; I10 Essential (primary) hypertension; K76.0 Fatty (change of) liver, not elsewhere classified; I25.5 Ischemic cardiomyopathy; I44.7 Left bundle-branch block, unspecified; D64.9 Anemia, unspecified; E66.9 Obesity, unspecified; Z68.30 Body mass index [BMI] 30.0-30.9, adult; Z87.891 Personal history of nicotine dependence; Z79.890 Hormone replacement therapy; Z79.899 Other long term (current) drug therapy; Z95.810 Presence of automatic (implantable) cardiac defibrillator; Z95.5 Presence of coronary angioplasty implant and graft; I25.2 Old myocardial infarction
CPT/HCPCS: 36415; 36416; 71045; 74177; 74330; 76705; 80048; 80053; 80061; 81003; 82553; 82805; 83690; 83735; 84443; 84484; 85025; 85347; 85610; 85730; 86850; 86900; 86901; 93005; 93010; 93458; 93798; 94002; 96365; 97139; 99152; C9113; J1100; J1642; J1644; J1815; J1885; J1940; J2001; J2150; J2250; J2405; J2440; J2543; J2704; J2720; J3010; J3370; J3475; J3480; J3490; P9045; Q9961; Q9967; S0017; S0028; U0002; U0005

== ENCOUNTER 2024-11-02 15:52 | Outpatient (CLI) | payer MEDICARE | END 2024-11-02 15:53 | disposition home or self-care (01) | LOC: SCSRAD 15:52 | PROVIDERS: ATTEND Family Medicine | DX: M25.561 Pain in right knee (principal) ==